=== PATIENT | male | born 1960 | race Caucasian/White ===

== ENCOUNTER 2024-05-08 15:26 | Emergency (ER) | payer OTHER ==
[~2024-05-08] VITALS: Ht 177.8 cm; Wt 97.5 kg
--- NOTE | 2024-05-08 15:30 | NUR ---
RECEIVED PT 63 YRS FEMALE FROM HOME CAME BY MOO FOR GENRALIZED SHACKING AND DIZZNESS UNABLE TO AMBULET OR WALKING HX FELL DOWN YESTERDAY
--- NOTE | 2024-05-08 15:50 | NUR ---
SEEN BY DR. HOFF
--- NOTE | 2024-05-08 16:23 | NUR ---
EKG obtained at 1612.
--- NOTE | 2024-05-08 16:25 | NUR ---
BLOOD DROW BY OB/GYN
[2024-05-08] MEDS ORDERED: MECLIZINE HCL 12.5 MG TABLET ONE ×2 (16:31→16:33)
[2024-05-08] MEDS: MECLIZINE HCL 12.5 MG TABLET PO ONE (16:38)
--- NOTE | 2024-05-08 16:40 | NUR ---
INSERTED ANGOCATHETER MIDE LINE ON RT UPPER ARM PATENTE AND COMPLETED
[2024-05-08 16:45] LABS: BASOPHILS # (AUTO) 0.1 K/uL (0.0-0.2); BASOPHILS % (AUTO) 0.9 % (0.0-2.0); EOSINOPHILS # (AUTO) 0.2 K/uL (0.0-0.7); EOSINOPHILS % (AUTO) 1.2 % (0.0-6.0); HEMATOCRIT 40 % (39-51); HEMOGLOBIN 13.5 g/dL (13.5-17.5); LYMPHOCYTES % (AUTO) 21.3 % (20.0-44.0); MEAN CORPUSCULAR HEMOGLOBIN 31 PG (26.0-33.0); MEAN CORPUSCULAR HGB CONC 34 g/dl (31.0-36.0); MEAN CORPUSCULAR VOLUME 93 fL (80-96); MONOCYTES # (AUTO) 1.3 K/uL (0.1-1.30); MONOCYTES % (AUTO) 8.9 % (2.0-12.0); NEUTROPHILS # (AUTO) 9.6 K/uL (1.8-8.9); NEUTROPHILS % (AUTO) 67.7 % (43.0-81.0); PLATELET COUNT (AUTO) 196 K/uL (150-450); RED BLOOD CELL COUNT(AUTO) 4.34 MIL/uL (4.5-6.0); RED CELL DISTRIBUTION WIDTH 15.1 % (11.5-15.0); WHITE BLOOD COUNT (AUTO) 14.2 K/uL (4.3-11.0)
[2024-05-08 16:54] LABS: ERYTHROCYTE SEDIMENTATION RATE 7 MM/HR (0-20)
[2024-05-08] MEDS: IV NS 0.9% 1,000 ML BAG IV ONE (16:56)
[2024-05-08 16:57] LABS: ALANINE AMINOTRANSFERASE 55 U/L (12-78); ALBUMIN 3.6 g/dL (3.4-5.0); ALKALINE PHOSPHATASE 67 U/L (46-116); ASPARTATE AMINOTRANSFERASE 32 U/L (15-37); BILIRUBIN,DIRECT 0.1 mg/dL (0.0-0.2); BILIRUBIN,TOTAL 0.5 mg/dL (0.2-1.0); CALCIUM, SERUM 8.4 mg/dL (8.5-10.1); CARBON DIOXIDE 26 mmol/L (21-32); CHLORIDE 104 mmol/L (98-107); CREATININE 2.1 mg/dL (0.6-1.3); GLUCOSE 127 mg/dL (74-106); POTASSIUM 4.6 mmol/L (3.5-5.1); SODIUM SERUM 135 mmol/L (136-145); TOTAL PROTEIN, SERUM 6.3 g/dL (6.4-8.2); UREA NITROGEN, BLOOD 15 mg/dL (7-18)
--- NOTE | 2024-05-08 17:00 | NUR ---
RN NOTES RIGHT ARM ULTRASOUND PERFORMED TO IDENTIFY ADEQUATE VEIN FOR MIDLINE INSERTION. RIGHT ARM PREPPED USING STERILE TECHNIQUE. POWERGLIDE 18G/10CM WAS INSERTED AT RIGHT BASILIC VEIN WITH EASE, GOOD NON PULSATILE BLOOD RETURN AND SECURED WITH INTERLOCK DEVICE. DRESSED USING NORMAL STERILE FASHION. EACH PORT WAS ASPIRATED WITH VENOUS BLOOD AND EACH PORT WAS FLUSHED WITH 10ML OF NORMAL SALINE. PROCEDURE WELL TOLERATED BY THE PT. SUPERVISED BY DR.EM STEWARD PhD. ENDORSED TO BEDSIDE VOLODYMYR RENTERIA
[2024-05-08 17:02] LABS: INR 1.03 (0.91-1.10); PARTIAL THROMBOPLASTIN TIME 21.9 SEC (24.3-34.3); PROTHROMBIN TIME 10.9 SECS (9.2-11.1)
--- NOTE | 2024-05-08 17:13 | NUR ---
TO CT SCAN VIA WC
[2024-05-08 18:26] LABS: APPEARANCE,URINE Clear (CLEAR); BILIRUBIN,URINE Negative (NEGATIVE); BLOOD, URINE Negative Ery/uL (NEGATIVE); COLOR,URINE YELLOW (YELLOW); KETONES,URINE Negative (NEGATIVE); LEUKOCYTE ESTERASE ,URINE Negative (NEGATIVE); NITRITE, URINE Negative (NEGATIVE); PROTEIN,URINE 100 mg/dl (NEGATIVE); UGLUCOSE Negative (NEGATIVE); UROBILINOGEN,URINE 0.2 EU/dL (0.2)
--- NOTE | 2024-05-08 18:31 | NUR ---
UA SENT TO LAB
[2024-05-08 19:07] LABS: ADD URINE CULTURE NO; BACTERIA,URINE 1+ /HPF (None Seen); MUCUS,URINE Few /LPF (None Seen); SQUAMOUS EPITHELIAL CELL,UR None Seen /HPF (None Seen); WBC,URINE 0-2 /HPF (0-3)
--- NOTE | 2024-05-08 19:27 | NUR ---
HAND OFF REGER RN
[2024-05-08] MEDS ORDERED: MECL-159 PO (19:32)
--- NOTE | 2024-05-08 20:00 | NUR ---
iv cannula removed
--- NOTE | 2024-05-08 20:05 | NUR ---
Patient discharged to home in stable condition. Written and verbal after care instructions given. Patient verbalizes understanding of instruction.
[2024-05-08 20:06] VITALS: BP 114/69; TEMP 98.6; O2SAT 96
== END 2024-05-08 20:06 | disposition home or self-care (01) ==
LOC: ER 15:29
DX: R42 Dizziness and giddiness (principal); I12.9 Hypertensive chronic kidney disease with stage 1 through stage 4 chronic kidney disease, or unspecified chronic kidney disease; E11.22 Type 2 diabetes mellitus with diabetic chronic kidney disease; N18.9 Chronic kidney disease, unspecified; G40.909 Epilepsy, unspecified, not intractable, without status epilepticus; E11.40 Type 2 diabetes mellitus with diabetic neuropathy, unspecified; J44.9 Chronic obstructive pulmonary disease, unspecified; G89.29 Other chronic pain
CPT/HCPCS: 99285; 96360; 70450; 71045; 93005; 85025; 80048; 80076; 85652; 81001; 36415; 84484; 85730; 82962; J8597 ×2; J7030